=== PATIENT | male | born 2005 | race Caucasian/White ===

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

== ENCOUNTER → 2024-02-02 | Outpatient (REF) | payer BC | LOC: M SFHCRHEU 13:43 | PROVIDERS: ATTEND Internal Medicine | DX: R53.82 Chronic fatigue, unspecified (principal); R74.8 Abnormal levels of other serum enzymes; M79.10 Myalgia, unspecified site; R76.8 Other specified abnormal immunological findings in serum; R09.81 Nasal congestion ==

== ENCOUNTER 2025-04-11 09:11 | Day surgery (SDC) | payer BC ==
[~2025-04-11] VITALS: Ht 182.9 cm; Wt 71.7 kg
[~2025-04-11 09:11] MED LIST: LIDOCAINE 2% 100 MG/5 ML SDV (FOR ANES.) As Ordered ONE; MIDAZOLAM INJ 2 MG/2 ML VIAL As Ordered ONE; ROCURONIUM BROMIDE 50MG/5ML VIAL As Ordered ONE
[2025-04-11] MEDS: LR 1,000 ML IV SCH (10:13)
[2025-04-11] MEDS: COCAINE 4% 4 ML NASAL SOLUTION BTL As Ordered ONE (10:53)
[2025-04-11] MEDS ORDERED: ACETAMINOPHEN 1000MG/100ML IV BAG As Ordered ONE (10:54)
[2025-04-11] MEDS: OXYMETAZOLINE 0.05% NASAL SPRAY As Ordered ONE (11:02)
[2025-04-11] MEDS ORDERED: SUGAMMADEX SODIUM 500 MG/5 ML VIAL As Ordered ONE (11:14)
[2025-04-11] MEDS ORDERED: dexAMETHasone 4 MG/ML 1 ML VIAL As Ordered ONE (11:14)
[2025-04-11] MEDS ORDERED: ONDANSETRON 4MG 2ML VIAL As Ordered ONE (11:14)
[2025-04-11] MEDS: LIDOCAINE W/EPINEPHrine 1% 20 ML VIAL As Ordered ONE (11:26)
[2025-04-11] MEDS: ONDANSETRON 4MG 2ML VIAL IV PRN (12:05)
[2025-04-11 12:45] VITALS: BP 156/82; TEMP 97.4; O2SAT 100
== END 2025-04-11 13:05 | disposition home or self-care (01) ==
LOC: M SDC 09:11
PROVIDERS: ATTEND Otolaryngology
DX: J34.2 Deviated nasal septum (principal); J34.3 Hypertrophy of nasal turbinates; Z72.0 Tobacco use
CPT/HCPCS: 30140; 30520; C9143; J0131; J1100; J2250; J2405; J3010